=== PATIENT | female | born 1985 | race Caucasian/White ===

== ENCOUNTER 2016-09-21 14:11 | Observation (INO) ==
[2016-09-21] MEDS ORDERED: ONDANSETRON 4 MG/2 ML VIAL IV SCH (16:00)
[2016-09-21 16:47] LABS: Basophils % 0.3 % (0.0-0.8); Hematocrit 37.7 VOL% (35.7-47.0); Hemoglobin 11.9 GM/DL (12.0-16.0); Immature Granulocytes % 0.5 %; Immature Granulocytes Absolute 0.03 #; Lymphocytes # 0.4 10*3/uL (1.4-4.0); Lymphocytes % 5.7 % (21.3-54.2); Mean Corpuscular HGB Conc 31.6 GM/DL (32-36); Mean Corpuscular Hemoglobin 31 PG (27-34); Mean Corpuscular Volume 98.7 FL (87-102); Monocytes # 0.3 10*3/uL (0.11-0.8); Monocytes % 4.9 % (1.7-12.7); Neutrophils # 5.7 10*3/uL (1.4-7.4); Neutrophils % 88.6 % (38.7-73.9); Platelet Count 196 T/CUMM (130-400); Red Blood Count 3.82 MC/CUMM (3.8-5.5); Red Cell Distribution Width 12.8 % (9.3-17.3); White Blood Count 6.4 T/CUMM (4-12)
[2016-09-21] MEDS ORDERED: DIPHENOXYLATE/ATROPINE 2.5-0.025 MG TABLET PO PRN (17:02)
[2016-09-21 17:13] LABS: Apearance,Urine Slightly Hazy (Clear); Bilirubin,Urine Negative (Negative); Blood, Urine Negative (Negative); Glucose,Urine (UA) Negative (Negative); Ketones,Urine 80 mg/dL (Negative); Mucus,Urine Occasional /LPF (Occasional); Nitrite,Urine Negative (Negative); Protein,Urine Negative; RBC,Urine 3 /HPF (0-4); Squamous Epithelial Cell,Urine Occasional /HPF (0-10); Urine Color Yellow (Yellow); Urine Specific Gravity 1.028 (1.001-1.035); Urine Urobilinogen < 2.0 EU/DL (0.2-1.0); WBC,Urine 5 /HPF (0-6)
[2016-09-21] MEDS: AMPICILLIN INJ 2,000 MG in SODIUM CHLORIDE 0.9% 100 ML IV SCH ×2 (17:15→23:04)
[2016-09-21] MEDS: LACTATED RINGERS 1,000 ML IV SCH (17:15)
[2016-09-21 17:24] LABS: Albumin 2.9 G/DL (3.4-5.0); Bilirubin,Total 0.4 MG/DL (0.2-1.0); Calcium 7.4 MG/DL (8.5-10.1); Osmolality,Calculated 285.7 MOS/KG (273-304); Potassium 3.7 MMOL/L (3.5-5.1); Total Protein 5.8 G/DL (6.4-8.3)
[2016-09-21] MEDS ORDERED: ACETAMINOPHEN 500 MG TABLET ONE (19:51)
[2016-09-21] MEDS ORDERED: ACETAMINOPHEN 500 MG TABLET PO PRN (19:59)
[2016-09-22] MEDS: LACTATED RINGERS 1,000 ML IV SCH ×2 (01:54→09:36)
[2016-09-22] MEDS: AMPICILLIN INJ 2,000 MG in SODIUM CHLORIDE 0.9% 100 ML IV SCH (05:19)
[2016-09-22] MEDS ORDERED: LEVOTHYROXINE 200 MCG TABLET PO SCH (07:00)
[2016-09-22 07:29] VITALS: BP 79/54
[2016-09-22] MEDS ORDERED: MULTIVITAMIN (PRENATAL) TABLET PO SCH (09:00)
--- NOTE | 2016-09-22 10:21 | OB/GYN History & Physical ---
History of Present Illness History of present illness: Ms. Ambrosio is a 31 year old female 2 para 1 EDC 02/17/2017, admitted with symptoms of gastroenteritis and hyperemesis. Patient was admitted admitted after being evaluated in the ER that morning. Patient had complained of 24-36 hours of diarrhea and and nausea and vomiting possibility of for poisoning. The ER did not notify me of her evaluation however the patient returned to the upon herself to be evaluated in my office that morning. After evaluating the patient and noticing her severe fatigue and dryness of the oral cavity she was sent to [facility] for further evaluation. Ultrasound was obtained demonstrated a viable intrauterine , white count was within normal limits, she was initiated with IV fluids at 150 and anti-medics for the first 24 hours. We'll continue to observe for any other noticeable symptoms. Home Medications Medication Instructions Recorded Confirmed Type Levothyroxine Tab [Synthroid Tab] 200 mcg PO DAILY@0700 09/21/16 09/21/16 History Pnv No.122/Iron/Folic Acid 1 each PO DAILY 09/21/16 09/21/16 History [ Multi Tablet] Allergies Allergy/AdvReac Type Severity Reaction Status Date / Time No Known Allergies Allergy Unverified 09/21/16 01:00 Medical,Surgical,& Family Hx - Medical History Endocrine: History of: Thyroid Disorder - Surgical History HEENT Surgeries: Surgical HX of: Thyroid Surgery Abdominal Surgeries: Surgical HX of: Cholecystectomy - Family History Family History: Reports;: Family Cancer, Family Heart Disease - Social History Smoking Status: Never smoker Frequency of Alcohol Use: None Type of Drug Use: None 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: Vital Signs Temp Pulse Resp BP Pulse Ox 09/22/16 07:29 97.7 F 78 18 79/54 100 09/22/16 04:00 98.7 F 83 20 96/47 99 09/22/16 02:00 20 09/22/16 00:00 98.3 F 79 20 87/53 99 09/21/16 20:50 99.8 F H 09/21/16 20:00 101.2 F H 114 H 20 90/48 99 09/21/16 19:50 101.2 F H 09/21/16 15:25 99.0 F 109 H 18 100/67 100 General appearance: mild distress - Head Head exam: Present: normal inspection - Eye Eye exam: Present: EOMI Pupils: Present: JUAN - ENT ENT exam: Present: normal exam - Neck Neck exam: Present: normal inspection - Respiratory Respiratory exam: Present: clear to auscultation bilaterally - Breast Breasts: as per HPI Menstruation: as per HPI - Cardiovascular Cardiovascular exam: Present: regular rate and rhythm - GI/Abdominal GI/Abdominal exam: Present: normal bowel sounds, soft - Extremities Exam Extremities exam: Present: normal inspection - Back Exam Back exam: Present: normal inspection - Neurological Exam Neurological exam: Present: alert, oriented X3 - Psychiatric Psychiatric exam: Present: normal affect, normal mood - Skin Skin exam: Present: normal color Assessment and Plan (1) Gastroenteritis and colitis, viral Status: Acute Assessment and plan: IV fluids, antibiotics, anti-emetics, and further evaluation. Current Visit: No Results - Labs CBC & BMP: 09/21/16 16:37 09/21/16 16:39
--- NOTE | 2016-09-22 10:26 | Discharge Summary ---
Hospital Course - Hospital Course Hospital Course: Received after having symptoms of hyperemesis and diarrhea. She was initially evaluated in the ER on the morning of September 21. She subsequently followed up in my office where she was noticed to be dehydrated and severe fatigue and low- grade temp. She submitted received IV fluids anti-medics and and antibiotics and obstetrical ultrasound. Obstetrical ultrasound demonstrated a viable intrauterine , urinalysis demonstrated a urinary tract infection. She was treated after 24 hours she felt strong enough and was tolerating a regular diet and was discharged. Diagnosis - Discharge Diagnosis (1) Gastroenteritis and colitis, viral Status: Acute Discharge Plan - Discharge Data Condition at Discharge: Stable Discharge Diet: advance to your usual diet Activity: increase activity as tolerated Hygiene: may shower Contact your physician if you experience:: fever over 101 - Discharge Medications New Nitrofurantoin Macro/Asotin [Macrobid] 100 mg PO Q12H #14 capsule No Action Levothyroxine Tab [Synthroid Tab] 200 mcg PO DAILY@0700 Pnv No.122/Iron/Folic Acid [ Multi Tablet] 1 each PO DAILY - Follow Up or Referral - Forms/Instructions Exam - Constitutional Vitals: Period Temp Pulse Resp BP Sys/Mcdaniels Pulse Ox Last 24 Hr 97.7 F-101.2 F 78-114 18-20 79-100/47-67 99-100 Discharge Results Procedures and tests throughout hospitalization: Pending Orders 09/21/16 15:53 Ova, Cyst, Parasite [Stool for Parasites] Routine Labs on day of discharge: Labs from last 24 hours 09/21/16 09/21/16 09/21/16 16:50 16:39 16:37 WBC 6.4 D RBC 3.82 Hgb 11.9 L D Hct 37.7 MCV 98.7 MCH 31 MCHC 31.6 L RDW 12.8 Plt Count 196 D MPV 10.0 Neut % (Auto) 88.6 H Lymph % (Auto) 5.7 L [place]otin % (Auto) 4.9 Eos % (Auto) 0.0 Baso % (Auto) 0.3 Neut # (Auto) 5.7 Lymph # (Auto) 0.4 L [place]otin # (Auto) 0.3 Eos # (Auto) 0.0 Baso # (Auto) 0.0 Immature Gran % 0.5 Nucleated RBC % 0.0 Immature Gran # 0.03 Nucleated RBCs # 0.00 Sodium 145 Potassium 3.7 Chloride 115 H Carbon Dioxide 16 L Anion Gap 17.7 H BUN 9 Creatinine 0.60 GFR Calculation 114 BUN/Creatinine Ratio 15.00 Glucose 75 Calculated Osmolality 285.7 Calcium 7.4 L Total Bilirubin 0.40 AST 17 ALT 12 L Alkaline Phosphatase 71 Total Protein 5.8 L Albumin 2.9 L Globulin 2.9 Albumin/Globulin Ratio 1.0 L Urine Color Yellow Urine Appearance Slightly hazy Urine pH 5.0 Ur Specific Perry 1.028 Urine Protein Negative Urine Glucose (UA) Negative Urine Ketones 80 Urine Blood Negative Urine Nitrate Negative Urine Bilirubin Negative Urine Urobilinogen < 2.0 H Urine Leukocytes Negative Urine RBC 3 Urine WBC 5 Ur Squamous Epith Cells Occasional Urine Mucus Occasional Ur Culture Indicated? Not indicated DS: Provider Date of admission: 09/21/16 15:00 Primary care physician: Laura Genao MD Attending physician on admission: Laura Genao MD Discharging clinician: Laura Genao MD
[2016-09-22] MEDS ORDERED: ONDANSETRON 4 MG/2 ML VIAL IV PRN (16:00)
== END 2016-09-22 11:05 | disposition home or self-care (01) ==
LOC: INTOOBSV 15:00 → N.OB 15:00
PROVIDERS: ADMIT Obstetrics & Gynecology; ATTEND Obstetrics & Gynecology

== ENCOUNTER 2017-02-10 05:59 | Inpatient (IN) ==
[2017-02-10] MEDS ORDERED: ONDANSETRON 4 MG/2 ML VIAL IV PRN ×2 (07:36→18:12)
[2017-02-10] MEDS ORDERED: LACTATED RINGERS 1,000 ML IV PRN (07:36)
[2017-02-10] MEDS ORDERED: PROMETHAZINE 25 MG/1 ML VIAL IM ONE (07:39)
[2017-02-10] MEDS ORDERED: hydrOXYzine HCL 25 MG/1 ML VIAL IM PRN (07:39)
[2017-02-10] MEDS ORDERED: diphenhydrAMINE 50 MG/1 ML VIAL IV PRN (07:39)
[2017-02-10] MEDS ORDERED: ePHEDrine 50 MG/ML AMP IV PRN (07:39)
[2017-02-10] MEDS ORDERED: fentaNYL 2 MCG/ROPIV 0.2% EPID 150 ML EPIDURAL SCH (07:39)
[2017-02-10] MEDS ORDERED: CITRIC ACID/SODIUM CITRATE 30 ML UDCUP PO ONE (07:40)
[2017-02-10] MEDS ORDERED: FAMOTIDINE 20 MG/2 ML VIAL IV ONE (07:40)
[2017-02-10 07:51] LABS: Basophils # 0.1 10*3/uL (0.0-0.2); Basophils % 0.7 % (0.0-0.8); Eosinophils # 0.3 10*3/uL (0.0-0.87); Eosinophils % 2.1 % (0.00-10.9); Hemoglobin 11.7 GM/DL (12.0-16.0); Immature Granulocytes % 4.9 %; Immature Granulocytes Absolute 0.69 #; Lymphocytes % 13.8 % (21.3-54.2); Mean Corpuscular HGB Conc 34.4 GM/DL (32-36); Mean Corpuscular Hemoglobin 31 PG (27-34); Mean Corpuscular Volume 88.8 FL (87-102); Mean Platelet Volume 10.1 FL (9.6-12.0); Monocytes # 1.4 10*3/uL (0.11-0.8); Monocytes % 9.7 % (1.7-12.7); Neutrophils # 9.7 10*3/uL (1.4-7.4); Neutrophils % 68.8 % (38.7-73.9); Platelet Count 183 T/CUMM (130-400); Red Blood Count 3.83 MC/CUMM (3.8-5.5); Red Cell Distribution Width 12.6 % (9.3-17.3); White Blood Count 14.1 T/CUMM (4-12)
[2017-02-10] MEDS ORDERED: miSOPROStol 200 MCG TABLET ONE (07:58)
[2017-02-10] MEDS ORDERED: LIDOCAINE 1% 50 ML VIAL ONE (07:58)
[2017-02-10] MEDS ORDERED: OXYTOCIN/LR 20 UNIT/1,000 ML BAG IV SCH (08:00)
[2017-02-10 08:26] LABS: Band Neutrophils 1 % (0-10); Eosinophils 3 % (0-10); Lymphocytes 14 % (20-55); Platelet Estimate Normal; Segmented Neutrophils 71 % (50-85); Total Cells Counted 100
[2017-02-10 08:27] LABS: Alanine Aminotransferase 15 U/L (13-56); Albumin 2.6 G/DL (3.4-5.0); Alkaline Phosphatase 205 U/L (45-117); Aspartate Amino Transferase 17 U/L (0-37); Bilirubin,Total < 0.39 MG/DL (0.2-1.0); Blood Urea Nitrogen 8 MG/DL (7-18); Calcium 8.3 MG/DL (8.5-10.1); Glucose 75 MG/DL (74-106); Hypochromasia Slight; Osmolality,Calculated 277.3 MOS/KG (273-304); Sodium 141 MMOL/L (136-145); Uric Acid 4.6 MG/DL (2.6-6.0)
--- NOTE | 2017-02-10 10:43 | OB/GYN History & Physical ---
History of Present Illness Chief complaint: in for elective induction of labor due to term . History of present illness: Ms. Ambrosio is a 31 year old female who is a 2 para 1 living 1. Her VITALIY is 02/17/2017 for an estimated gestational age of 39 weeks. The patient presents for elective induction of labor due to term . The risk and benefits have been thoroughly discussed with this patient and significant other and plan of care has been discussed with Dr. Genao, all parties are in agreement plan. The patient received her care through the [facility] and she received routine care, her course was implicated with a placenta tear early in her pregnancies. This was followed by serial ultrasounds and CBCs. The patient did well and no other complications were noted. The patient did receive steroids around 28 weeks in case of a delivery.. The patient has had a previous vaginal delivery of a liveborn that weighed 7 pounds and 11 ounces and she reported no complications with that . labs: The patient is a negative and she did receive shantell RhoGam. RPR is nonreactive, hepatitis B is negative, HIV is negative, rubella is immune, GBS culture is negative. Review of systems is negative with exception of above. Home Medications Medication Instructions Recorded Confirmed Type Levothyroxine Tab [Synthroid Tab] 250 mcg PO DAILY@0700 09/21/16 02/10/17 History No122/Iron/Folic Acid 1 each PO DAILY 09/21/16 02/10/17 History [ Multi Tablet] Omeprazole [Prilosec] 1 tablet PO DAILY 02/02/17 02/10/17 History Allergies Allergy/AdvReac Type Severity Reaction Status Date / Time No Known Allergies Allergy Verified 02/09/17 09:11 12 point system: reviewed and no additional remarkable complaints except as stated Medical,Surgical,& Family Hx - Medical History Psychological: History of: Depression Endocrine: History of: Thyroid Disorder Reproductive: No history of: Ectopic , Complication Other: History of: 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 General appearance: no acute distress - Antepartum / Post Antepartum Exam Cervix - Dilatation: 4 cm Effacement: 70% Station: -1 Rupture: Intact Presentation: Vertex Heart Rate: 140s Breast: bilateral: normal Abdomen obstetrics: Present: bowel sounds normal Vagina: Present: normal moisture, discharge Uterus exam: Present: enlarged - Respiratory Respiratory exam: Present: clear to auscultation bilaterally - Cardiovascular Cardiovascular exam: Present: regular rate and rhythm - GI/Abdominal GI/Abdominal exam: Present: normal bowel sounds, soft - Extremities Exam Extremities exam: Present: normal inspection - Neurological Exam Neurological exam: Present: alert, oriented X3 - Psychiatric Psychiatric exam: Present: normal affect, normal mood - Skin Skin exam: Present: normal color, warm Assessment and Plan (1) Term Status: Acute Assessment and plan: Admit IV fluids IV Pitocin per protocol Artificial rupture membranes when appropriate Internal monitors if indicated Epidural anesthesia Anticipate Current Visit: Yes Results - Labs CBC & BMP: 02/10/17 07:45 02/10/17 07:45 Quality Measures - VTE Contraindication to Pharmacological VTE Prophylaxis: Clinical assessment deems Pt at low risk, no prophalaxis needed
[2017-02-10 13:26] LABS: Apearance,Urine CLEAR (Clear); Bilirubin,Urine Negative (Negative); Blood, Urine Negative (Negative); Glucose,Urine (UA) Negative (Negative); Ketones,Urine 5 mg/dL (Negative); Nitrite,Urine Negative (Negative); Protein,Urine Negative; RBC,Urine 1 /HPF (0-4); Urine Color Straw (Yellow); Urine Specific Gravity 1.005 (1.001-1.035); Urine Urobilinogen < 2.0 EU/DL (0.2-1.0); WBC,Urine <1 /HPF (0-6)
--- NOTE | 2017-02-10 15:01 | Event Note ---
Delivery note Admitted at 39 weeks gestation 2-3 cm dilated heart tones category 1 Epidural anesthetic 2 Artificial rupture membranes clear fluid scalp electrode, IUPC IV Pitocin Stage II Vacuum extraction at +2 station 1 application Maternal exhaustion Female infant Apgars 8 at 1 minute 9 at 5 minutes Delivery time 1443 Cord blood, cord gas obtained Stage III Estimated blood loss less than 250 cc Manual extraction of the placenta 3 cord vessels Mother and stable Placenta to the lab
[2017-02-10 15:28] LABS: Cord Venous Blood HCO3 21.8 MMOL/L; Cord Venous Blood PCO2 25.1 MMHG; Cord Venous Blood PO2 47.1
[2017-02-10] MEDS ORDERED: RHO(D) IMMUNE GLOBULIN 300 MCG SYRINGE IM ONE (18:12)
[2017-02-10] MEDS ORDERED: OXYTOCIN/LR 20 UNIT/1,000 ML BAG IV ONE (18:12)
[2017-02-10] MEDS ORDERED: WITCH HAZEL PADS 100/JAR TOP PRN (18:12)
[2017-02-10] MEDS ORDERED: DIPH/TET/ACEL PERT BOOSTER VACCINE 0.5 ML VIAL IM ONE (18:12)
[2017-02-10] MEDS ORDERED: MEASLES/MUMPS/RUBELLA VACCINE 0.5 ML VIAL SUBCUT ONE (18:12)
[2017-02-10] MEDS ORDERED: BENZOCAINE 20%/MENTHOL 0.5% SPRAY 56 GM CAN TOP PRN (18:12)
[2017-02-10] MEDS ORDERED: LANOLIN 50% CREAM 0.3 OZ TUBE TOP PRN (18:12)
[2017-02-10] MEDS ORDERED: BISACODYL 10 MG SUPP RECTAL PRN (18:12)
[2017-02-10] MEDS ORDERED: HYDROCORTISONE 2.5% RECTAL CREAM 30 GM TUBE TOP PRN (18:12)
[2017-02-10] MEDS ORDERED: oxyCODONE/ACETAMINOPHEN 5-325 MG TABLET PO PRN ×2 (18:12)
[2017-02-10] MEDS: IBUPROFEN 800 MG TABLET PO PRN (18:39)
[2017-02-10] MEDS: LACTATED RINGERS 1,000 ML IV SCH ×2 (20:28→20:30)
[2017-02-10] MEDS: DOCUSATE SODIUM 100 MG CAPSULE PO SCH (21:30)
[2017-02-11] MEDS: IBUPROFEN 800 MG TABLET PO PRN ×3 (05:27→21:13)
[2017-02-11 06:48] LABS: Basophils # 0.1 10*3/uL (0.0-0.2); Basophils % 0.6 % (0.0-0.8); Eosinophils # 0.3 10*3/uL (0.0-0.87); Eosinophils % 1.9 % (0.00-10.9); Hematocrit 28.7 VOL% (35.7-47.0); Hemoglobin 9.8 GM/DL (12.0-16.0); Immature Granulocytes % 3.4 %; Immature Granulocytes Absolute 0.59 #; Lymphocytes # 2.2 10*3/uL (1.4-4.0); Lymphocytes % 12.8 % (21.3-54.2); Mean Corpuscular HGB Conc 34.1 GM/DL (32-36); Mean Corpuscular Hemoglobin 31 PG (27-34); Mean Corpuscular Volume 89.7 FL (87-102); Monocytes % 11.4 % (1.7-12.7); Neutrophils % 69.9 % (38.7-73.9); Platelet Count 152 T/CUMM (130-400); Red Cell Distribution Width 12.4 % (9.3-17.3); White Blood Count 17.2 T/CUMM (4-12)
[2017-02-11 07:08] LABS: Band Neutrophils 2 % (0-10); Eosinophils 1 % (0-10); Hypochromasia 1+; Lymphocytes 11 % (20-55); Platelet Estimate Adequate; Segmented Neutrophils 81 % (50-85); Total Cells Counted 100
--- NOTE | 2017-02-11 07:18 | Anesthesia Post-Op ---
Anesthesia Post OP - Post Ansesthetic Evaluation Patient seen in post op: Yes Resp: within normal limits CV: within normal limits Mental: within normal limits Temp: within normal limits [id number]: within normal limits Nausea and Vomiting: within normal limits Pain: within normal limits
[2017-02-11] MEDS: FERROUS SULFATE 325 MG TABLET PO SCH ×2 (09:21→21:13)
[2017-02-11] MEDS: DOCUSATE SODIUM 100 MG CAPSULE PO SCH ×2 (09:21→21:12)
[2017-02-11] MEDS: ACETAMINOPHEN 325 MG TABLET PO PRN ×2 (09:22→15:23)
--- NOTE | 2017-02-11 10:04 | Progress Note ---
Family Medicine PN Sub Interval history: Status post vaginal Cardiac exam benign, respiratory system benign, uterus is nice and firm Extremities well within normal limits and neurologic grossly intact Assessment and plan Possible discharge in a.m. We will discharge with Motrin, Tylenol threes, and also iron therapy. Exam (Progress Note) - Constitutional Vitals: Period Temp Pulse Resp BP Sys/Mcdaniels Pulse Ox Last 24 Hr 97.1 F-98.4 F 60-92 18-20 95-112/58-70 97-99 Results - Labs CBC & BMP: 02/11/17 06:41 02/10/17 07:45 Quality Measures - VTE Contraindication to Pharmacological VTE Prophylaxis: Clinical assessment deems Pt at low risk, no prophalaxis needed
[2017-02-11] MEDS ORDERED: RHO(D) IMMUNE GLOBULIN 300 MCG SYRINGE IM ONE (13:30)
[2017-02-12] MEDS: FERROUS SULFATE 325 MG TABLET PO SCH (09:33)
[2017-02-12] MEDS: DOCUSATE SODIUM 100 MG CAPSULE PO SCH (09:33)
[2017-02-12] MEDS: IBUPROFEN 800 MG TABLET PO PRN (11:20)
[2017-02-12 11:56] VITALS: BP 97/64
--- NOTE | 2017-02-12 12:19 | Pathology Report from [facility] ---
[facility] ACCESSION # : [id number] PATIENT NAME : Jorge Ambrosio ORDERING DR : GLADIS CARBAJAL MD CLINICAL HX: IUP @ 39 wks, placenta tear in early POST-OP DX: Same SPECIMEN INFO: Placenta GROSS DESCRIPTION: Received fresh labeled with the patients name and consists of a fragmented placenta weighing 590 grams and measures 19.5 x 19.2 cm x up to 2.0 cm. membranes are lucas and opaque. The umbilical cord appears to be inserted near the margin. The cord measures 19.5 cm. The surface is blue -kimbrough with areas of subchorionic fibrin measuring up to 1.5 cm. The maternal surface is markedly disrupted, beefy red with a few areas of adherent clotted blood. No gross abnormalities on sectioning. Sections submitted: A membranes and cord, B and maternal surfaces. DIAGNOSIS FOR JORGE AMBROSIO: PLACENTA, MEMBRANES, UMBILICAL CORD: Focal placental infarction with dystrophic calcification, mild intervillous blood. Tri -vessel umbilical cord, marginally inserted. Membranes with focal chronic inflammation and attached blood. COLLECTED DATE: 02/11/2017 [facility] REPORT DATE: 02/12/2017 ELECTRONICALLY SIGNED BY: Harshal Hermosillo M.D. 02/12/2017 - 10:12:01 ANRDEW
--- NOTE | 2017-04-19 07:22 | Discharge Summary ---
DATE OF ADMISSION: 02/10/2017 DATE OF DISCHARGE: 02/12/2017 The patient underwent vaginal delivery female , stable, 6 pounds 12 ounces with low vacuum extraction on one application only. Cord pH was obtained. Three cord vessels were noted. The patients hospitalization was really uneventful from next 48 hours. She tolerated the hospitalization without any complications. Voided well, multiple bowel movements, being discharged. Followup at our office in approximately 6 weeks. ANDREW
== END 2017-02-12 14:15 | disposition home or self-care (01) | DRG 775 ==
LOC: N.LDOUT 05:59 → N.LD 06:00 → N.OB 17:54
PROVIDERS: ADMIT Obstetrics & Gynecology; ATTEND Obstetrics & Gynecology